=== PATIENT | female | born 1960 | race Caucasian/White ===

== ENCOUNTER 2018-02-28 05:49 | Emergency (ER) | payer MEDICAID, OTHER ==
[~2018-02-28] VITALS: Ht 157.5 cm; Wt 63.5 kg
--- NOTE | 2018-02-28 05:49 | NUR ---
BIBSELF C/O YOSHI LEG SWELLING. RECENT HYSTERECTOMY THURSDAY. VSS NAD A/OX4 ABLE TO MAKE NEEDS KNOWN. WILL CONTINUE TO MONITOR FOR ANY CHANGES DURING THE SHIFT.
--- NOTE | 2018-02-28 06:00 | NUR ---
ER MD ANDRADE AT BEDSIDE
--- NOTE | 2018-02-28 06:10 | NUR ---
CALLED RADIOLOGY TO PAGE FOR VENOUS DUPLEX
[2018-02-28 08:10] VITALS: BP 98/52
--- NOTE | 2018-02-28 08:10 | NUR ---
Patient discharged to home in stable condition. Written and verbal after care instructions given. Patient verbalizes understanding of instruction.
== END 2018-02-28 08:11 | disposition home or self-care (01) ==
LOC: ER 05:52
DX: M79.605 Pain in left leg (principal); M79.604 Pain in right leg; Z90.710 Acquired absence of both cervix and uterus; Z90.10 Acquired absence of unspecified breast and nipple; Z85.3 Personal history of malignant neoplasm of breast; Z86.19 Personal history of other infectious and parasitic diseases
CPT/HCPCS: 93970-TC; A4606; Z7610

== ENCOUNTER 2018-09-04 00:26 | Emergency (ER) | payer OTHER ==
[~2018-09-04] VITALS: Ht 157.5 cm; Wt 67.1 kg
--- NOTE | 2018-09-04 01:24 | NUR ---
TO BED 4 AMBULATORY C/O CONSTIPATION X 1 WEEK, ALSO C/O DIZZINESS, CHILLS, LOWER BACK PAIN. PT AAOX4 NO ACUTE DISTRESS NOTED, RESP EVEN AND UNLABORED. PENDING ER MD ROME.
--- NOTE | 2018-09-04 01:33 | NUR ---
ER MD AT BEDSIDE TO EVAL PT WITH ORDERS RECEIVED. WILL CARRY OUT ORDERS.
--- NOTE | 2018-09-04 01:51 | NUR ---
URINE SAMPLE COLLECTED AND SENT TO LAB.
[2018-09-04 02:06] LABS: BASOPHILS % (AUTO) 0.4 % (0.0-2.0); EOSINOPHILS % (AUTO) 1.2 % (0.0-6.0); HEMATOCRIT 42 % (33-45); MEAN CORPUSCULAR HGB CONC 33 g/dl (31.0-36.0); MEAN CORPUSCULAR VOLUME 89 fL (82-100); MONOCYTES # (AUTO) 0.8 /CMM (0.1-1.30); MONOCYTES % (AUTO) 11.3 % (2.0-12.0); NEUTROPHILS # (AUTO) 4.1 /CMM (1.8-8.9); NEUTROPHILS % (AUTO) 59.1 % (43.0-81.0); PLATELET COUNT (AUTO) 319 /CMM (150-450); RED BLOOD CELL COUNT(AUTO) 4.71 MIL/uL (4.0-5.2)
[2018-09-04 02:14] LABS: APPEARANCE,URINE SL CLOUDY (CLEAR); BILIRUBIN,URINE NEGATIVE (NEGATIVE); BLOOD, URINE TRACE-INTA Ery/uL (NEGATIVE); COLOR,URINE YELLOW (YELLOW); KETONES,URINE NEGATIVE (NEGATIVE); LEUKOCYTE ESTERASE ,URINE 1+ (NEGATIVE); NITRITE, URINE POSITIVE (NEGATIVE); PH,URINE 6.5 (5.0-8.0); PROTEIN,URINE NEGATIVE (NEGATIVE); UGLUCOSE NEGATIVE (NEGATIVE); UROBILINOGEN,URINE 0.2 EU/dL (0.2)
[2018-09-04 02:19] LABS: CALCIUM, SERUM 8.8 mg/dL (8.5-10.1); CREATININE 0.8 mg/dL (0.6-1.3); POTASSIUM 4.1 mmol/L (3.5-5.1)
[2018-09-04 02:23] LABS: BACTERIA,URINE Many /HPF (None Seen); SQUAMOUS EPITHELIAL CELL,UR Few /HPF (None Seen)
[2018-09-04 02:24] LABS: ALBUMIN 3.5 g/dL (3.4-5.0); BILIRUBIN,DIRECT 0.1 mg/dL (0.0-0.2); BILIRUBIN,TOTAL 0.3 mg/dL (0.2-1.0)
--- NOTE | 2018-09-04 02:39 | NUR ---
LAB RESULTS RECEIVED. FLACO SANDS MADE AWARE.
--- NOTE | 2018-09-04 02:45 | NUR ---
PT BACK FROM RADIOLOGY. PENDING CT HEAD RESULT.
--- NOTE | 2018-09-04 03:31 | NUR ---
Patient discharged to home in stable condition. Written and verbal after care instructions given. Patient verbalizes understanding of instruction. ambulatory with a steady gait
[2018-09-04 03:32] VITALS: BP 123/63
== END 2018-09-04 03:33 | disposition home or self-care (01) ==
LOC: ER 00:30
DX: N39.0 Urinary tract infection, site not specified (principal); Z90.710 Acquired absence of both cervix and uterus; Z85.3 Personal history of malignant neoplasm of breast; Z86.19 Personal history of other infectious and parasitic diseases; Z96.651 Presence of right artificial knee joint; Z90.13 Acquired absence of bilateral breasts and nipples; Z60.2 Problems related to living alone
CPT/HCPCS: 36415; 80048; 80076; 81001; 83690; 85025; 87077; 87086; 87186; 99283; A4606; Z7610; 81000-TC

== ENCOUNTER 2018-09-05 23:41 | Inpatient (IN) | payer OTHER ==
[~2018-09-05] VITALS: Ht 165.1 cm; Wt 70.3 kg
[2018-09-06] VITALS (7 sets, daily range): BP systolic 99–122; BP diastolic 58–75
--- NOTE | 2018-09-06 00:01 | NUR ---
C/O POSSIBLE SYNCOPAL EPISODE. WOKE UP ON FLOOR, BRUISE TO NOSE. PAIN LEVEL 6/10. NO DISCOLORATION, SLIGHT SWELLING AT THE BRIDGE OF THE NOSE. PT IS AOX4, VSS, RESPIRATIONS EVEN AND UNLABORED, SATTING WELL ON ROOM AIR. HAS DIZZINESS UPON STANDING. DENIES SOB, WEAKNESS, N/V/D. HAD RECENT ER VISIT FOR UTI. READY FOR MD ROME.
[2018-09-06] MEDS ORDERED: IV NS 0.9% 1,000 ML BAG IV ONE (00:30)
[2018-09-06] MEDS ORDERED: ACETAMINOPHEN ES 500 MG TABLET PO ONE (00:30)
--- NOTE | 2018-09-06 00:34 | NUR ---
BED 113-2, NURSE MOISES
[2018-09-06] MEDS ORDERED: ACETAMINOPHEN ES 500 MG TABLET ONE (00:37)
--- NOTE | 2018-09-06 00:40 | NUR ---
RADIOLOGY AT BEDSIDE
--- NOTE | 2018-09-06 00:43 | NUR ---
[facility]
--- NOTE | 2018-09-06 00:55 | NUR ---
PT BACK FROM CT, CALM AND PLEASANT DEMEANOR. NO COMPLAINTS AT THIS TIME.
[2018-09-06 01:25] LABS: BASOPHILS % (AUTO) 0.3 % (0.0-2.0); EOSINOPHILS % (AUTO) 1.2 % (0.0-6.0); HEMATOCRIT 40 % (33-45); HEMOGLOBIN 13.6 g/dL (11.5-14.8); LYMPHOCYTES # (AUTO) 1.5 /CMM (0.8-4.8); LYMPHOCYTES % (AUTO) 20.6 % (20.0-44.0); MEAN CORPUSCULAR HGB CONC 34 g/dl (31.0-36.0); MEAN CORPUSCULAR VOLUME 89 fL (82-100); MONOCYTES # (AUTO) 0.8 /CMM (0.1-1.30); MONOCYTES % (AUTO) 10.3 % (2.0-12.0); NEUTROPHILS % (AUTO) 67.6 % (43.0-81.0); PLATELET COUNT (AUTO) 314 /CMM (150-450); RED BLOOD CELL COUNT(AUTO) 4.49 MIL/uL (4.0-5.2); WHITE BLOOD COUNT (AUTO) 7.4 K/uL (4.3-11.0)
[2018-09-06 01:33] LABS: CALCIUM, SERUM 8.7 mg/dL (8.5-10.1); CARBON DIOXIDE 29 mmol/L (21-32); CHLORIDE 104 mmol/L (98-107); CREATININE 0.7 mg/dL (0.6-1.3); GLUCOSE 109 mg/dL (74-106); POTASSIUM 3.9 mmol/L (3.5-5.1); SODIUM SERUM 140 mmol/L (136-145); UREA NITROGEN, BLOOD 21 mg/dL (7-18)
--- NOTE | 2018-09-06 01:44 | NUR ---
REPORT GIVEN TO NIRU DE LEON FOR 113-2 TELE
--- NOTE | 2018-09-06 02:20 | NUR ---
PT TRANSFERRED VIA [facility] TO [facility] WITH RN AND EMT TECH
--- NOTE | 2018-09-06 02:25 | NUR ---
OYSTER GRADER ADMISSION NOTES, 58 YEAR OLD FEM SILVIA ADMITTED FROM ER DEPARTMENT VIA STRETCHER IN COMPANY OF 2 STAFF IN STABLE CONDITION, A/O X4 ABLE TO VERBALIZED NEEDS AND CONCERNS, BREATHING EVEN AND UNLABORED, NO SOB/ACUTE DISTRESS NOTED, WITH VS 97.6, 97% RA, 122/ 74, 85, 0/10 SR IN THE MONITOR ONCE ATTACHED, HR IN THE 80'S, UNDER MEDICAL CARE OF LASHAE GLASS NP. 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
[2018-09-06] MEDS: IV NS 0.9% 1,000 ML IV PRN ×2 (02:48→20:37)
[2018-09-06] MEDS ORDERED: ONDANSETRON HCL/PF 4 MG/2 ML VIAL IVP PRN (03:00)
[2018-09-06] MEDS ORDERED: MAGNESIUM HYDROXIDE 30 ML UDC PO PRN (03:00)
[2018-09-06] MEDS ORDERED: Z GUARD REMEDY 2 OZ OINT TP PRN (03:00)
[2018-09-06] MEDS ORDERED: MAG HYDROX/AL HYDROX/SIMETH 30 ML UDC PO PRN (03:00)
--- NOTE | 2018-09-06 06:50 | NUR ---
MACHINE PROGRAMMER CLOSING NOTES, PATIENT SLEEPING AT THIS TIME, BREATHING EVEN AND UNLABORED, NO SOB/ACUTE DISTRESS NOTED, NO C/O PAIN OR DISCOMFORT AT THIS TIME, IV SITE LEFT HAND 22G, IVF INFUSING WELL AND PATIENT TOLERATED WELL, AMBULATORY, ALL NEEDS PROVIDED, CALL LIGHT W/I REACH, NO SIGNIFICANT CHANGE IN CONDITION DURING AGRICULTURE LABORATORY TECHNICIAN, WILL ENDORSE CONTINUITY OF CARE TO ONCOMING NURSE.
[2018-09-06] MEDS ORDERED: DULO20CA18 PO (08:46)
[2018-09-06] MEDS ORDERED: CHOL100044 PO (08:46)
[2018-09-06] MEDS ORDERED: LORA10TA7 PO (08:46)
[2018-09-06] MEDS: PANTOPRAZOLE 40 MG VIAL IV SCH (10:13)
[2018-09-06] MEDS: CEPHALEXIN MONOHYDRATE 500 MG CAPSULE PO SCH ×2 (10:13→18:31)
[2018-09-06] MEDS: ACETAMINOPHEN 325 MG TABLET PO PRN ×2 (10:30→20:37)
--- NOTE | 2018-09-06 15:29 | NUR ---
GROUNDSKEEPING MAINTENANCE WORKER NOTE NOTIFIED PATIENT OF NEW ORDER OF GARCIA CATHETER PER MD. PATIENT REFUSED SAYING "I DON'T NEED A CATHETER, I USE THE BATHROOM." PATIENT ALERT AND AMBULATORY. MD AWARE OF REFUSAL.
[2018-09-07] VITALS: BP 110/59
[2018-09-07 04:00] VITALS: BP_SYST 101; BP_SYST 110; BP_DIAS 59; BP_DIAS 69
[2018-09-07 06:16] LABS: BASOPHILS % (AUTO) 0.2 % (0.0-2.0); EOSINOPHILS % (AUTO) 1.8 % (0.0-6.0); HEMATOCRIT 42 % (33-45); HEMOGLOBIN 13.8 g/dL (11.5-14.8); LYMPHOCYTES # (AUTO) 1.4 /CMM (0.8-4.8); LYMPHOCYTES % (AUTO) 21.6 % (20.0-44.0); MEAN CORPUSCULAR HGB CONC 33 g/dl (31.0-36.0); MEAN CORPUSCULAR VOLUME 90 fL (82-100); MONOCYTES # (AUTO) 0.6 /CMM (0.1-1.30); MONOCYTES % (AUTO) 8.4 % (2.0-12.0); NEUTROPHILS # (AUTO) 4.5 /CMM (1.8-8.9); PLATELET COUNT (AUTO) 320 /CMM (150-450); RED BLOOD CELL COUNT(AUTO) 4.66 MIL/uL (4.0-5.2); WHITE BLOOD COUNT (AUTO) 6.6 K/uL (4.3-11.0)
[2018-09-07 06:36] LABS: BILIRUBIN,TOTAL 0.4 mg/dL (0.2-1.0); CREATININE 0.7 mg/dL (0.6-1.3); MAGNESIUM 1.9 mg/dL (1.8-2.4); TOTAL PROTEIN, SERUM 6.2 g/dL (6.4-8.2)
[2018-09-07 06:38] LABS: THYROID STIMULATING HORMONE 0.808 uIU/mL (0.358-3.74)
--- NOTE | 2018-09-07 07:06 | NUR ---
RN NOTE NOTIFIED DR ANTUNEZ AT [phone] REGARDING EKG RESULTS, PER DR ANTUNEZ NO NEW ORDERS GIVEN
[2018-09-07 08:00] VITALS: BP 109/71
[2018-09-07] MEDS: PANTOPRAZOLE 40 MG VIAL IV SCH (08:45)
[2018-09-07] MEDS: ACETAMINOPHEN 325 MG TABLET PO PRN ×2 (08:48→15:15)
[2018-09-07] MEDS: CEPHALEXIN MONOHYDRATE 500 MG CAPSULE PO SCH (08:49)
[2018-09-07] MEDS: IV NS 0.9% 1,000 ML IV PRN (11:36)
[2018-09-07 12:00] VITALS: BP 116/64
[2018-09-07 12:04] VITALS: BP 116/64
--- NOTE | 2018-09-07 15:43 | NUR ---
LINE DANCER NOTE PATIENT PREPARED FOR DISCHARGE. DISCHARGE PAPERWORK AND EXITCARE COMPLETED AND PRINTED OUT, EXPLAINED TO PATIENT AND SIGNED BY HER, STATES UNDERSTANDING. BELONGINGS LIST COMPLETE AND SIGNED. IV SITE REMOVED FROM LEFT HAND, NO SIGNS OF BLEEDING OR INFECTION. TELE BOX REMOVED. PATIENT ALERT AND ORIENTED, VITAL SIGNS STABLE, NO APPARENT DISTRESS. ESCORTED PATIENT TO MAIN ENTRANCE AND PATIENT LEFT THE FACILITY WITH BELONGINGS AT 15:25 IN OWN CAR.
== END 2018-09-07 15:25 | disposition home or self-care (01) | DRG 48 ==
LOC: ER 23:43 → TELE1 09-06 01:45
PROVIDERS: ADMIT Student in an Organized Health Care Education/Training Program; ATTEND Family Medicine
DX: G90.8 Other disorders of autonomic nervous system (principal); N17.0 Acute kidney failure with tubular necrosis; R79.89 Other specified abnormal findings of blood chemistry; S02.2XXA Fracture of nasal bones, initial encounter for closed fracture; Z90.710 Acquired absence of both cervix and uterus; Z85.3 Personal history of malignant neoplasm of breast; Z86.19 Personal history of other infectious and parasitic diseases; X58.XXXA Exposure to other specified factors, initial encounter; Y93.9 Activity, unspecified; Y92.009 Unspecified place in unspecified non-institutional (private) residence as the place of occurrence of the external cause
CPT/HCPCS: 36415; 70450-TC; 70486-TC; 71045-TC; 80048-TC; 80053-TC; 80061-TC; 83735-TC; 84100-TC; 84443-TC; 84484-TC; 85025-TC; 85730-TC; 87081-TC; 93307-TC; 93880-TC; 95819-TC; A4606; C9113; G0378; J7030; Z7610

== ENCOUNTER 2018-11-03 02:54 | Emergency (ER) | payer OTHER ==
[~2018-11-03] VITALS: Ht 157.5 cm; Wt 65.8 kg
[~2018-11-03 02:54] MED LIST: CHOL100044 PO; DULO20CA18 PO; LORA10TA7 PO
[2018-11-03 02:58] VITALS: BP 123/69
== END 2018-11-03 03:20 | disposition home or self-care (01) ==
LOC: ER 02:54
DX: M54.30 Sciatica, unspecified side (principal); F10.10 Alcohol abuse, uncomplicated; F17.200 Nicotine dependence, unspecified, uncomplicated; Y90.9 Presence of alcohol in blood, level not specified; Z60.2 Problems related to living alone; Z85.3 Personal history of malignant neoplasm of breast; Z86.19 Personal history of other infectious and parasitic diseases; Z90.89 Acquired absence of other organs; Z90.13 Acquired absence of bilateral breasts and nipples; Z96.651 Presence of right artificial knee joint

== ENCOUNTER 2019-04-05 05:59 | Emergency (ER) | payer OTHER ==
[~2019-04-05] VITALS: Ht 157.5 cm; Wt 62.6 kg
[~2019-04-05 05:59] MED LIST changes: -DULO20CA18 PO; +DULO20CA19 PO
--- NOTE | 2019-04-05 06:14 | NUR ---
PT BIBS C/C CRAMPS SINCE YESTERDAY AM, LOWER BACK PAIN, RECENT FULL UTERINE PROLAPSE, +N/-V, C/O LOWER BACK PAIN, PT SITTING IN BED, AWAITING MD ROME
--- NOTE | 2019-04-05 06:36 | NUR ---
Patient discharged to home in stable condition. Written and verbal after care instructions given. Patient verbalizes understanding of instruction.
[2019-04-05 06:38] VITALS: BP 117/74
== END 2019-04-05 06:40 | disposition home or self-care (01) ==
LOC: ER 06:03
DX: R19.7 Diarrhea, unspecified (principal); N81.4 Uterovaginal prolapse, unspecified; R20.2 Paresthesia of skin; F17.200 Nicotine dependence, unspecified, uncomplicated; Z85.3 Personal history of malignant neoplasm of breast; Z90.710 Acquired absence of both cervix and uterus; Z90.13 Acquired absence of bilateral breasts and nipples; Z98.890 Other specified postprocedural states; Z86.19 Personal history of other infectious and parasitic diseases; Z60.2 Problems related to living alone; Z79.899 Other long term (current) drug therapy

== ENCOUNTER 2019-06-26 07:44 | Emergency (ER) | payer OTHER ==
[~2019-06-26] VITALS: Ht 157.5 cm; Wt 58.5 kg
[2019-06-26 07:54] VITALS: BP 141/89
[2019-06-26 09:05] LABS: BASOPHILS % (AUTO) 0.5 % (0.0-2.0); EOSINOPHILS % (AUTO) 2.2 % (0.0-6.0); HEMATOCRIT 42 % (33-45); HEMOGLOBIN 14.4 g/dL (11.5-14.8); LYMPHOCYTES # (AUTO) 1.5 /CMM (0.8-4.8); MEAN CORPUSCULAR HGB CONC 34 g/dl (31.0-36.0); MEAN CORPUSCULAR VOLUME 89 fL (82-100); MONOCYTES # (AUTO) 0.8 /CMM (0.1-1.30); NEUTROPHILS # (AUTO) 4.6 /CMM (1.8-8.9); NEUTROPHILS % (AUTO) 65.3 % (43.0-81.0); PLATELET COUNT (AUTO) 383 /CMM (150-450); RED BLOOD CELL COUNT(AUTO) 4.73 MIL/uL (4.0-5.2); WHITE BLOOD COUNT (AUTO) 7.1 K/uL (4.3-11.0)
[2019-06-26 09:19] LABS: CALCIUM, SERUM 8.9 mg/dL (8.5-10.1); CREATININE 0.9 mg/dL (0.6-1.3); POTASSIUM 4.3 mmol/L (3.5-5.1)
--- NOTE | 2019-06-26 11:25 | NUR ---
Patient discharged to home in stable condition. Written and verbal after care instructions given. Patient verbalizes understanding of instruction.
== END 2019-06-26 11:25 | disposition home or self-care (01) ==
LOC: ER 07:44
DX: D69.2 Other nonthrombocytopenic purpura (principal); F17.200 Nicotine dependence, unspecified, uncomplicated; Z86.19 Personal history of other infectious and parasitic diseases; Z90.710 Acquired absence of both cervix and uterus; Z90.13 Acquired absence of bilateral breasts and nipples; Z98.890 Other specified postprocedural states; Z60.2 Problems related to living alone; Z79.899 Other long term (current) drug therapy; Z85.3 Personal history of malignant neoplasm of breast
CPT/HCPCS: 36415; 80048-TC; 85025-TC; 85730-TC

== ENCOUNTER 2020-07-10 03:54 | Emergency (ER) | payer OTHER ==
[~2020-07-10] VITALS: Ht 154.9 cm; Wt 59.0 kg
--- NOTE | 2020-07-10 05:15 | NUR ---
BIBS FOR C/O BLE EDEMA. PT DENIED ANY PAIN OR DOSCOMFORT . NO SOB OR COUGH. PT AMBULATORY TO BED 2. WAS PLACED ELVER A MONITOR . VSS. WILL CONT TO MONITOR ,
--- NOTE | 2020-07-10 06:17 | NUR ---
US TECH AT BED SITE
--- NOTE | 2020-07-10 07:09 | NUR ---
pt is medically stable for D/C. Patient discharged to home in stable condition. Written and verbal after care instructions given. Patient verbalizes understanding of instruction.
[2020-07-10 07:11] VITALS: BP 135/83
== END 2020-07-10 07:11 | disposition home or self-care (01) ==
LOC: ER 03:56
DX: R22.43 Localized swelling, mass and lump, lower limb, bilateral (principal); F17.200 Nicotine dependence, unspecified, uncomplicated; Z60.2 Problems related to living alone; Z79.899 Other long term (current) drug therapy; Z98.890 Other specified postprocedural states; Z85.3 Personal history of malignant neoplasm of breast
CPT/HCPCS: 93970-TC

== ENCOUNTER → 2022-08-21 | Emergency (ER) | payer OTHER ==
[~2022-08-21] VITALS: Ht 157.5 cm; Wt 56.7 kg
[2022-08-21 09:10] VITALS: BP 132/78
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
--- NOTE | 2022-08-21 09:30 | NUR ---
SEEN BY MD . INSTRUCTIONS GIVEN
== END | disposition home or self-care (01) ==
LOC: ER 09:15
DX: H33.22 Serous retinal detachment, left eye (principal); F17.200 Nicotine dependence, unspecified, uncomplicated; Z90.710 Acquired absence of both cervix and uterus; Z90.13 Acquired absence of bilateral breasts and nipples; Z60.2 Problems related to living alone; Z79.899 Other long term (current) drug therapy